=== PATIENT | female | born 1960 | race Caucasian/White ===

== ENCOUNTER 2019-06-29 06:33 | Day surgery (SDC) | payer OTHER ==
[~2019-06-29] VITALS: Ht 160 cm; Wt 61.7 kg
[~2019-06-29 06:33] MED LIST: GLIMEPIRIDE1 MG; LIPITOR20 MG PO
== END 2019-06-29 17:40 | disposition home or self-care (01) ==
LOC: CIR.AMB 06:33
DX: N20.1 Calculus of ureter (principal)

== ENCOUNTER 2022-06-04 09:08 | Outpatient (CLI) | payer OTHER | END 2022-06-04 09:22 | disposition home or self-care (01) | LOC: SONOGRAMA 09:08 | PROVIDERS: ATTEND Obstetrics & Gynecology | DX: N93.8 Other specified abnormal uterine and vaginal bleeding (principal); N84.0 Polyp of corpus uteri ==